=== PATIENT | male | born 1965 | race Two or more races ===

== ENCOUNTER 2024-05-19 07:00 | Day surgery (SDC) | payer MEDICAID, SELFPAY ==
[2024-05-19] VITALS (9 sets, daily range): BP systolic 119–161; BP diastolic 65–89; PULSE 69–79; RESP 12–18; TEMP 36.1–36.6; O2SAT 93–98; BMI 36.1
[2024-05-19] MEDS: DiphenhydrAMINE INJ 50 MG/ML VIAL 25 MG IV (08:12)
[2024-05-19] MEDS: fentaNYL CIT INJ 50 mCg/ML AMP 2ML (ASD USE ONLY) IV (08:16)
[2024-05-19] MEDS: MIDAZOLAM INJ 1 MG/ML VIAL 2 ML (ASD USE ONLY) 2 MG IV (08:18)
--- NOTE | 2024-05-19 08:28 | SUR.PHASEII ---
Pt arrived to PACU, NO ACUTE DISTRESS NOTED. PT IS LAYING ON LEFT LATERAL. PT ABLE TO FOLLOW INSTRUCTIONS AND STATED HE IS PASSING GAS.
--- NOTE | 2024-05-19 08:35 | SUR.PHASEII ---
PT DRIFTED BACK TO SLEEP, CONTINUE TO PASS GAS.
--- NOTE | 2024-05-19 08:45 | SUR.PHASEII ---
PT MORE AWAKE SITTING IN THE GURNEY AND TOLERATING ORAL FLUID INTAKE.
--- NOTE | 2024-05-19 09:06 | SUR.PHASEII ---
PT ABLE TO AMBULATE TO THE BATHROOM AND INDEPENDENTLY DRESSED SELF. D/C INSTRUCTION REVIEWED WITH PT AND FAMILY MEMBERS. ALL QUESTIONS WERE ANSWERED. FAMILY AND PT STATE UNDERSTANDING.
== END 2024-05-19 09:06 | disposition home or self-care (01) ==
PROVIDERS: PCP Family Medicine; Referring Provider Surgery; Visit Provider Surgery
PROC: 0DBE8ZX Excision of Large Intestine, Via Natural or Artificial Opening Endoscopic, Diagnostic (ICD-10-PCS; CPT 45380; principal; 2024-05-19 08:00)
DX: K64.1 Second degree hemorrhoids (principal); K57.31 Diverticulosis of large intestine without perforation or abscess with bleeding
CPT/HCPCS: 45378; J1200; J2250; J3010